=== PATIENT | male | born 1970 | race Caucasian/White ===

== ENCOUNTER 2020-10-02 12:52 | Emergency (ER) | payer MEDICARE, SELFPAY ==
[2020-10-02 13:05] VITALS: BP 130/86; PULSE 89; RESP 20; TEMP 36.3; O2SAT 98; BMI 34.1
--- NOTE | 2020-10-02 13:29 | HMH.EDUTC ---
[facility] [place] Disposition Clinical Impression: Exposure to COVID-19 virus Disposition: Home, Self-Care Condition on Discharge: Good Instructions: DI for COVID-19 (Suspected or Confirmed ), Coronavirus Disease 2019, COVID-19: Testing and Tracing, Preventing the Spread of Coronavirus Discharge Instructions Additional Instructions: *Monitor Temp, Over the counter Motrin or Tylenol as directed/as needed Tylenol every 4 hours and Motrin every 6 hours (as long as your family doctor has told you that you can take it) for fever or pain. and straight to ER if unable to lower temp less than 101.0 after medication given Follow up IMMEDIATELY for new or worsening symptoms or no Noticeable improvement over the next 48-72 hours. 911 for difficulty breathing or swallowing You were tested for today for COVID19 your test result should be back in the next 24-48 hours, you may call to the [facility] to see if your test results are back in the next 48 hours [phone] [facility] hours are 9am-9pm You was given a handout with instructions for Self Quarantine and Self isolation for while you wait on test results and what to do if they are positive If you are positive the Health Dept will be contacting you also Referrals: Delmer Wilson III, MD [Primary Care Provider] - As needed Forms: Work/School Release Time of Disposition: 13:34 Medical Decision Making - Ziggy Inquiry Pt receiving controlled substance: No Ziggy was queried for this patient: No Vital Signs: 10/02/20 13:05 Temperature 97.4 F L Temperature Source Oral Pulse Rate [Right Brachial] 89 Respiratory Rate 20 Blood Pressure [Right Arm] 130/86 Blood Pressure Mean [Right Arm] 100 Blood Pressure Source [Right Arm] Automatic Cuff Blood Pressure Position [Right Arm] Sitting 02 Sat by Pulse Oximetry 98 Oxygen Delivery Method Room Air - Lab Data Lab results reviewed: Yes: I reviewed the patient's lab results. Orders (Tests/Meds): ORDERS Category Date Time Status Covid-19 Nasal PCR ([facility]) Routine Lab 10/02/20 12:59 Ordered [facility] [place] HPI - General Stated complaint: covid exposure Time Seen by Provider: 10/02/20 13:29 Mode of Arrival: Ambulatory Source of Information: Patient Limitations: No Limitations Description of Symptoms (Recalled from Triage Doc. by RN): REQUESTING COVID TEST D/T EXPOSURE; C/O NAUSEA HEENT Symptoms (Recalled from RN notes): No Resp Symptoms (Recalled from RN notes): No Skin Symptoms (Recalled from RN notes): No MS Symptoms (Recalled from RN notes): No Functional Status (Recalled from RN notes): WNL - History of Present Illness Provider Complaint: Patient states that he was recently around someone that has tested positive for COVID States that he has not been having any symptoms States that he has had a little nausea but nothing else - Related Data Allergies Allergy/AdvReac Type Severity Reaction Status Date / Time No Known Allergies Allergy Verified 10/02/20 13:18 - Worker's Comp Is this a Worker's Comp case?: No [facility] History - Hepatitis A Screen Drug use history?: No High risk sexual behaviors?: No History of sexually transmitted infection?: No Currently employed?: No Childcare worker?: No Do you have indoor plumbing?: Yes Do you have electricity?: Yes Attestation statement:: This patient has been screened for Hepatitis A risk factors. I have reviewed the patient's past medical history: Yes Medical History: Reports:: Diabetes Mellitus Type 2 - Social History Alcohol Intake: never Occupational Status: other ROS Obtained: Yes All systems reviewed & no additional complaints, Yes Systems reviewed as appropriate & no additional complaints - Constitutional Constitutional: Reports system reviewed and no additional complaints, except as docu, Denies body ache, Denies chills, Denies fever(s), Denies headache(s) - ENT Ears, Nose, Mouth, and Throat: Reports system reviewed and no additional complaints, except as docu - Cardiovascular
[2020-10-02 13:41] VITALS: BP 130/86; PULSE 89; RESP 20; TEMP 36.3; O2SAT 98
== END 2020-10-02 13:42 | disposition home or self-care (01) ==
PROVIDERS: Emergency Provider Nurse Practitioner; PCP Family Medicine
DX: Z20.828 Contact with and (suspected) exposure to other viral communicable diseases (principal); R11.0 Nausea
CPT/HCPCS: 99202; G0463; U0003

== ENCOUNTER 2020-10-11 16:45 | Emergency (ER) | payer MEDICARE, SELFPAY ==
[2020-10-11 17:10] VITALS: BP 116/76; PULSE 89; RESP 18; TEMP 36.4; O2SAT 98; BMI 33.8
--- NOTE | 2020-10-11 17:31 | HMH.EDUTC ---
[facility] [place] Disposition Clinical Impression: Exposure to COVID-19 virus Disposition: Home, Self-Care Condition on Discharge: Good Instructions: DI for COVID-19 (Suspected or Confirmed ), Preventing the Spread of Coronavirus Discharge Instructions, Coronavirus Disease 2019 Additional Instructions: *Monitor Temp, Over the counter Motrin or Tylenol as directed/as needed Tylenol every 4 hours and Motrin every 6 hours (as long as your family doctor has told you that you can take it) for fever or pain. and straight to ER if unable to lower temp less than 101.0 after medication given *Warm salt water gargles may help to soothe the throat *Throat Lozenges *Warm fluids like tea with honey may help to soothe the throat *Sleep elevated *Humidifier/Vaporizer Follow up IMMEDIATELY for new or worsening symptoms or no Noticeable improvement over the next 48-72 hours. 911 for difficulty breathing or swallowing You were tested for today for COVID19 your test result should be back in the next 24-48 hours, you may call to the [facility] to see if your test results are back in the next 48 hours [phone] [facility] hours are 9am-9pm You was given a handout with instructions for Self Quarantine and Self isolation for while you wait on test results and what to do if they are positive If you are positive the Health Dept will be contacting you also * Referrals: Delmer Wilson III, MD [Primary Care Provider] - As needed Forms: Work/School Release Time of Disposition: 17:34 Medical Decision Making - Ziggy Inquiry Pt receiving controlled substance: No Ziggy was queried for this patient: No Vital Signs: 10/11/20 17:10 Temperature 97.6 F Temperature Source Oral Pulse Rate [Right Brachial] 89 Respiratory Rate 18 Blood Pressure [Right Arm] 116/76 Blood Pressure Mean [Right Arm] 89 Blood Pressure Source [Right Arm] Automatic Cuff Blood Pressure Position [Right Arm] Sitting 02 Sat by Pulse Oximetry 98 Orders (Tests/Meds): ORDERS Category Date Time Status Covid-19 Nasal PCR ([facility]) Routine Lab 10/11/20 16:51 Ordered [facility] [place] HPI - General Stated complaint: Covid-19 test has fever Time Seen by Provider: 10/11/20 17:32 Mode of Arrival: Ambulatory Source of Information: Patient Limitations: No Limitations Description of Symptoms (Recalled from Triage Doc. by RN): COVID TEST D/T EXPOSURE; C/O FEVER, MUSCLE ACHES AND HEADACHE HEENT Symptoms (Recalled from RN notes): Yes Resp Symptoms (Recalled from RN notes): No Skin Symptoms (Recalled from RN notes): No MS Symptoms (Recalled from RN notes): No Functional Status (Recalled from RN notes): WNL - History of Present Illness Provider Complaint: Patient states that he wants to get tested for COVID State that he was recently around someone that is positive States that he has been having headaches, cough and body aches - Related Data Allergies Allergy/AdvReac Type Severity Reaction Status Date / Time No Known Allergies Allergy Verified 10/02/20 13:18 - Worker's Comp Is this a Worker's Comp case?: No [facility] History - Hepatitis A Screen Drug use history?: No High risk sexual behaviors?: No History of sexually transmitted infection?: No Currently employed?: No Childcare worker?: No Do you have indoor plumbing?: Yes Do you have electricity?: Yes Attestation statement:: This patient has been screened for Hepatitis A risk factors. I have reviewed the patient's past medical history: Yes Medical History: Reports:: Diabetes Mellitus Type 2 - Social History Alcohol Intake: never Occupational Status: other ROS Obtained: Yes All systems reviewed & no additional complaints, Yes Systems reviewed as appropriate & no additional complaints - Constitutional Constitutional: Reports body ache, Reports chills, Reports fever(s), Reports headache(s) - ENT Ears, Nose, Mouth, and Throat: Reports system reviewed and no additional complaints, except as docu - Cardiovascular Cardiovascular: R
[2020-10-11 17:48] VITALS: BP 116/76; PULSE 89; RESP 18; TEMP 36.4; O2SAT 98
--- NOTE | 2020-10-12 21:11 | PC.NURSE ---
ATTEMPTED TO CALL PT ABOUT COVID RESULT, NO ANSWER
--- NOTE | 2020-10-13 10:58 | PC.NURSE ---
patient notified of positive covid results
== END 2020-10-11 17:49 | disposition home or self-care (01) ==
PROVIDERS: Emergency Provider Nurse Practitioner; PCP Family Medicine
DX: U07.1 COVID-19 (principal)
CPT/HCPCS: G0463; 99202; U0003

== ENCOUNTER → 2021-03-23 11:53 | Outpatient (CLI) | payer MEDICARE, SELFPAY ==
[2021-03-23 12:11] LABS: Basophils % 0.3 % (0.1-2.0); Eosinophils # 0.1 K/mm3 (0.0-0.4); Eosinophils % 1.5 % (0.1-12.0); Hematocrit 45.8 % (42.0-52.0); Hemoglobin 15.9 g/dL (14.1-18.0); Lymphocytes # 1.2 K/mm3 (0.7-4.5); Lymphocytes % 18.4 % (10-50); Mean Corpuscular HGB Conc 34.7 g/dL (31.8-35.4); Mean Corpuscular Hemoglobin 31.8 pg (27.0-31.2); Mean Corpuscular Volume 91.7 fl (80-94); Mean Platelet Volume 7.4 fl (7.4-10.4); Monocytes # 0.4 K/mm3 (0.1-1.0); Monocytes % 5.4 % (1.7-9.3); Neutrophils # 4.9 K/mm3 (1.8-7.8); Neutrophils % 74.4 % (37.0-80.0); Platelet Count 169 K/mm3 (142-424); Red Blood Count 4.99 M/mm3 (4.60-6.20); Red Cell Distribution Width 13.2 % (11.5-17.5); White Blood Count 6.5 K/mm3 (4.8-10.8)
[2021-03-23 12:31] LABS: Hemoglobin A1C 6.1 % (4.0-6.0)
[2021-03-23 12:51] LABS: Chloride 100 mmol/L (98-107); Potassium 4.3 mmoL/L (3.5-5.1); Sodium 139 mmol/L (136-145)
[2021-03-23 12:53] LABS: Blood Urea Nitrogen 18 mg/dl (9-20); Estimated Glomerular Filt Rate 102 ml/min (>60); GFR (African American) 124 ML/MIN (>60)
[2021-03-23 12:54] LABS: Alanine Aminotransferase 29 U/L (12-78); Albumin Level 4.9 g/dl (3.5-5.0); Albumin/Globulin Ratio 1.6 (1.1-1.8); Alkaline Phosphatase 49 U/L (38-126); Anion Gap 14.3 mEq/L (5-15); Aspartate Amino Transferase 35 U/L (17-59); Bilirubin,Total 1.1 mg/dl (0.2-1.3); Calcium 9.2 mg/dl (8.4-10.2); Carbon Dioxide 29 mmol/L (22.0-30.0); Chol/HDL Ratio 2.5 (1-3.5); Cholesterol 169 mg/dl (140-200); Glucose 116 mg/dl (74-100); HDL Cholesterol 68 mg/dl (40-60); Total Protein,Serum 7.9 g/dl (6.3-8.2); Triglycerides 120 mg/dl (30-150); VLDL Cholesterol 24 mg/dL (0-40)
[2021-03-23 13:29] LABS: Direct LDL Cholesterol 81.27 mg/dL (100-129)
[2021-03-23 13:49] LABS: Prostate Specific Ag Screen 0.9 ng/ml (0.0-4.0)
== END ==
PROVIDERS: Visit Provider Internal Medicine Adolescent Medicine
DX: E11.9 Type 2 diabetes mellitus without complications (principal); E78.5 Hyperlipidemia, unspecified; Z12.5 Encounter for screening for malignant neoplasm of prostate
CPT/HCPCS: 36415; 80053; 80061; 83036; 85025; G0103

== ENCOUNTER → 2021-05-30 09:18 | Outpatient (CLI) | payer MEDICARE, SELFPAY | PROVIDERS: Visit Provider Internal Medicine Gastroenterology | DX: Z01.812 Encounter for preprocedural laboratory examination (principal); Z20.822 Contact with and (suspected) exposure to COVID-19; Z12.11 Encounter for screening for malignant neoplasm of colon | CPT/HCPCS: U0003 ==

== ENCOUNTER 2021-06-01 10:55 | Day surgery (SDC) | payer MEDICARE, SELFPAY ==
[2021-05-26 13:58] VITALS: BMI 32.1
[2021-06-01] VITALS (7 sets, daily range): BP systolic 101–115; BP diastolic 61–78; PULSE 57–65; RESP 12–18; TEMP 36.2–36.4; O2SAT 94–100
[2021-06-01 11:23] LABS: POC Glucose,Bedside 120 (70-110)
--- NOTE | 2021-06-01 11:24 | P.PN_ITS ---
[facility] Anesthesia Checklist - Patient Identification Patient Identification: Arm Band - Structural Data Admitted From: Home Planned Operative Procedure/s: colonoscopy Consent for Planned Operative Procedure(s) Verified: Yes Verified Documents: Surgical Consent, History and Physical - NPO Status Verified Time NPO: 00:00 - Additional verifications Anesthesia Reactions: No - Airway Assessment C-Spine Mobility Assessed: Yes (mp2) TMJ Mobility Assessed: Yes Dentition: Good Dentition - Neurological Assessment Level of Consciousness: Awake, Alert - Anesthesia Plan Anesthesia Risk discussed: Yes Anesthesia Plan: Verified ASA Class: III Anesthesia Type: MAC [facility] History I have reviewed the patient's past medical history: Yes Medical History: Reports:: Diabetes Mellitus Type 2, Hyperlipidemia, Hypertension Denies:: Cancer, Diabetes Mellitus Type 1, Internal Pacemaker, MRSA, Seizures *Have you ever received a pneumonia vaccine?: No *Have you received a flu vaccine this season?: Yes (2019) Anesthesia experience/problems:: nac Other Surgeries: Yes: Other. No: Pacemaker Amputation: No Fractures: Yes (L arm ORIF) - *Social History Last grade of school completed: High school graduate Smoking Status: Never smoker Alcohol Intake: current Alcohol Intake Frequency:: a few times a month Substance Use Type: denies use *Occupational Status:: unemployed, disabled Housing: house *Travel in the last 8 weeks: None Family Hx:: No significant family history
--- NOTE | 2021-06-01 12:03 | HMH.PROC ---
[facility] Procedure Note Procedure Note:: Colonoscopy Procedure Report: Colonoscopy with cold snare polypectomy, snare cautery and Endo Clip placement Endoscopist: Waylon Brantley II, MD Referring physician: Finn Ford M.D. Date of Procedure: June 01, 2021 Equipment: Olympus 190 variable stiffness pediatric colonoscope Sedation: MAC sedation Indication: Mr. Mckeon is a 50-year-old gentleman who is here for initial screening colonoscopy. He reports no rectal bleeding, change in his bowel habits, weight loss or family history of colon cancer. He does state that his father had colonic polyps. He does get some chronic intermittent lower abdominal crampy discomfort. This has been going on for the last couple of years. He reports no gassiness or bloating. Procedure: Prior to the procedure, a history and physical exam was performed, and patient's medications and allergies were reviewed. The risks, benefits and alternatives of the sedation and procedure were discussed with the patient. All questions were answered and informed consent was obtained. The patient was brought to the procedure room. Patient identification and proposed procedure were verified by the physician and the nurse. The patient was placed in a left lateral decubitus position and the scope was passed under direct vision. Throughout the procedure, the patient's blood pressure, pulse, and oxygen saturations were monitored continuously. The colonoscopy was accomplished without difficulty. The patient tolerated the procedure well. Findings: On digital rectal examination there was normal rectal tone. There were no external hemorrhoids. The prostate was 2+, soft, minimally increased firmness right lower margin but no nodules. The colonoscope was introduced through the anal canal to the rectum and advanced to the cecum. The ileocecal valve and appendiceal orifice were identified. The scope was advanced a short distance into the ileum which appeared grossly normal. The scope was then withdrawn into the colon. There were 5 colon polyps (cecum x2 (3 and 6 mm), transverse x2 (4 and 5 mm) and sigmoid x1 (14 mm)). These were all removed via snare polypectomy. The smaller polyps were removed via cold snare polypectomy. The largest sigmoid polyp was removed via snare cautery. An Endo Clip was placed on the polypectomy base. The remaining cecum, ascending and transverse colon and mucosa were grossly normal. There were mildly scattered diverticuli throughout the descending and sigmoid colon (LEFT colon). The rectum itself was normal. Upon retroflexion within the rectum there were grade 1-2 internal hemorrhoids. The preparation was excellent throughout with Battiest Preparation Score of 9. The cecal time was 12 minutes. Impression: 1. Sigmoid colon polyp (14 mm) 2. Diminutive additional colonic polyps x4 3. Mild left-sided diverticulosis 4. Grade 1-2 internal hemorrhoids Plan: I will follow up the polyp histology and recommend repeat screening/surveillance colonoscopy again in 3 years based upon the size and adenomatous polyp pathology. I would encourage dietary measures and bulk fiber supplementation. I do feel that the patient does get some intermittent spastic diverticular disease.
== END 2021-06-01 12:55 | disposition home or self-care (01) ==
LOC: OUTP 10:57
PROVIDERS: PCP Internal Medicine Adolescent Medicine; Visit Provider Internal Medicine Gastroenterology
PROC: 0DJD8ZZ Inspection of Lower Intestinal Tract, Via Natural or Artificial Opening Endoscopic (ICD-10-PCS; CPT 45378; principal; 2021-06-01 14:00)
DX: Z12.11 Encounter for screening for malignant neoplasm of colon (principal); K63.5 Polyp of colon; K57.32 Diverticulitis of large intestine without perforation or abscess without bleeding; K64.0 First degree hemorrhoids; Z83.71 Family history of colonic polyps; E11.9 Type 2 diabetes mellitus without complications; E78.5 Hyperlipidemia, unspecified; I10 Essential (primary) hypertension
CPT/HCPCS: 45385; 82962; 88305

== ENCOUNTER → 2021-07-17 07:17 | Outpatient (CLI) | payer MEDICARE, SELFPAY ==
[2021-07-17 07:53] LABS: Basophils # 0.1 K/mm3 (0-0.2); Eosinophils # 0.4 K/mm3 (0.0-0.4); Eosinophils % 8.6 % (0.1-12.0); Hematocrit 45.4 % (42.0-52.0); Hemoglobin 15.2 g/dL (14.1-18.0); Lymphocytes # 1.5 K/mm3 (0.7-4.5); Mean Corpuscular HGB Conc 33.5 g/dL (31.8-35.4); Mean Corpuscular Hemoglobin 32.4 pg (27.0-31.2); Mean Corpuscular Volume 96.7 fl (80-94); Mean Platelet Volume 8.1 fl (7.4-10.4); Monocytes # 0.3 K/mm3 (0.1-1.0); Neutrophils # 2.8 K/mm3 (1.8-7.8); Neutrophils % 54.5 % (37.0-80.0); Platelet Count 162 K/mm3 (142-424); Red Cell Distribution Width 13.4 % (11.5-17.5); White Blood Count 5.1 K/mm3 (4.8-10.8)
[2021-07-17 08:04] LABS: Chloride 101 mmol/L (98-107)
[2021-07-17 08:05] LABS: Potassium 4.1 mmoL/L (3.5-5.1); Sodium 139 mmol/L (136-145)
[2021-07-17 08:07] LABS: Alanine Aminotransferase 27 U/L (12-78); Alkaline Phosphatase 51 U/L (38-126); Aspartate Amino Transferase 31 U/L (17-59); Bilirubin,Total 0.9 mg/dl (0.2-1.3); Blood Urea Nitrogen 11 mg/dl (9-20); Estimated Glomerular Filt Rate 119 ml/min (>60); GFR (African American) 144 ML/MIN (>60)
[2021-07-17 08:08] LABS: Albumin Level 4.1 g/dl (3.5-5.0); Albumin/Globulin Ratio 1.6 (1.1-1.8); Anion Gap 12.1 mEq/L (5-15); Carbon Dioxide 30 mmol/L (22.0-30.0); Chol/HDL Ratio 2.2 (1-3.5); Cholesterol 119 mg/dl (140-200); Globulin 2.6 g/dL (1.3-3.2); Glucose 105 mg/dl (74-100); HDL Cholesterol 53 mg/dl (40-60); Total Protein,Serum 6.7 g/dl (6.3-8.2); Triglycerides 106 mg/dl (30-150); VLDL Cholesterol 21 mg/dL (0-40)
[2021-07-17 08:19] LABS: Direct LDL Cholesterol 49.49 mg/dL (100-129)
== END ==
PROVIDERS: Visit Provider Internal Medicine Adolescent Medicine
DX: E78.5 Hyperlipidemia, unspecified (principal); E11.9 Type 2 diabetes mellitus without complications; Z79.84 Long term (current) use of oral hypoglycemic drugs
CPT/HCPCS: 36415; 80053; 80061; 83036; 85025

== ENCOUNTER → 2021-10-26 12:03 | Outpatient (CLI) | payer MEDICARE, SELFPAY | PROVIDERS: Visit Provider Nurse Practitioner | DX: U07.1 COVID-19 (principal) | CPT/HCPCS: C9803; U0003; U0005 ==

== ENCOUNTER → 2022-08-19 07:05 | Outpatient (CLI) | payer OTHER, SELFPAY ==
--- NOTE | 2022-08-19 07:12 | CT_ITS ---
FINAL REPORT TECHNIQUE: Axial images were performed through the lumbar spine by computed tomography. Sagittal reconstruction images were also performed. This study was performed with techniques to keep radiation doses as low as reasonably achievable, (ALARA). Individualized dose reduction techniques using automated exposure control or adjustment of mA and/or kV according to the patient's size were employed. CLINICAL HISTORY: POST LAMINECTOMY SYNDROME, BACK PAIN FINDINGS: Sagittal reconstruction images demonstrate minimal spondylolisthesis of L4 on L5. The vertebrae are normal height. L1-L2: No significant disc bulge or protrusion. L2-L3: No significant disc bulge or protrusion. L3-L4: There is a mild diffuse disc bulge with endplate hypertrophy. There is mild bilateral neural foraminal narrowing. L4-L5: There is a mild diffuse disc bulge with mild bilateral neural foraminal narrowing. L5-S1: There is a [id number] diffuse disc bulge. There is moderate right and mild left neural foraminal narrowing. Note is made of a 3 mm nonobstructing left renal stone. IMPRESSION: Moderate hypertrophic changes of the lower lumbar facets with areas of neural foraminal narrowing greatest on the right at L5-S1. Reviewed, Interpreted and Dictated by James Crowley MD Transcribed by Errol Erickson Authenticated and [facility]
== END ==
PROVIDERS: PCP Internal Medicine Adolescent Medicine; Visit Provider Anesthesiology Pain Medicine
DX: M96.1 Postlaminectomy syndrome, not elsewhere classified (principal)
CPT/HCPCS: 72131

== ENCOUNTER → 2023-03-28 12:18 | Outpatient (CLI) | payer OTHER, SELFPAY ==
[2023-04-21 00:07] LABS: MRSA DNA PCR Negative
== END ==
PROVIDERS: PCP Internal Medicine Adolescent Medicine; Visit Provider Nurse Practitioner Family
DX: M96.1 Postlaminectomy syndrome, not elsewhere classified (principal)
CPT/HCPCS: 36415; 87641

== ENCOUNTER → 2023-04-29 10:35 | Outpatient (CLI) | payer MEDICARE, SELFPAY ==
[2023-04-29 12:39] LABS: Anion Gap 11.2 mEq/L (5-15); Blood Urea Nitrogen 18 mg/dl (9-20); Calcium 8.9 mg/dl (8.4-10.2); Carbon Dioxide 28 mmol/L (22.0-30.0); Chloride 104 mmol/L (98-107); Estimated Glomerular Filt Rate 102 ml/min (>60); GFR (African American) 123 ML/MIN (>60); Glucose 94 mg/dl (74-100); Potassium 4.2 mmoL/L (3.5-5.1); Sodium 139 mmol/L (136-145)
== END ==
PROVIDERS: PCP Internal Medicine Adolescent Medicine; Visit Provider Anesthesiology
DX: M96.1 Postlaminectomy syndrome, not elsewhere classified (principal)
CPT/HCPCS: 36415; 80048

== ENCOUNTER → 2023-07-28 13:48 | Outpatient (CLI) | payer MEDICARE, SELFPAY ==
--- NOTE | 2023-07-28 13:57 | US_ITS ---
FINAL REPORT CLINICAL HISTORY: CERVICAL LYMPHADENOPATHY FINDINGS: Limited sonographic images of the neck soft tissue were obtained. The parotid and submandibular glands are normal. There are several small nodes in the bilateral neck. The appearance is consistent with reactive nodes. No dominant mass or nodule is identified. IMPRESSION: Several small bilateral neck nodes consistent with reactive nodes. Reviewed, Interpreted and Dictated by Josesito Merino III, MD Transcribed by Yuliana Pandya Authenticated and [facility]
== END ==
LOC: RAD 13:49
PROVIDERS: PCP Internal Medicine Adolescent Medicine; Visit Provider Internal Medicine Adolescent Medicine
DX: R59.0 Localized enlarged lymph nodes (principal)
CPT/HCPCS: 76536

== ENCOUNTER 2023-09-18 18:40 | Emergency (ER) | payer MEDICARE, SELFPAY ==
[2023-09-18 18:40] VITALS: BP 141/88; PULSE 87; RESP 16; TEMP 36.7; O2SAT 98; BMI 31.3
--- NOTE | 2023-09-18 18:44 | ECG_ITS ---
APPROVED REPORT Exam: Resting ECG HR:92 bpm ECG Measurements Heart Rate 92 AXES AL 139 P 74 QRSd 78 QRS -75 QT 346 T 57 QTc 396 Conclusion SINUS RHYTHM INDETERMINATE AXIS PATTERN CONSISTENT WITH PULMONARY DISEASE ABNORMAL ECG UNCONFIRMED REPORT Electronically signed by : Finn Ford MD 09/19/2023 14:45:42
--- NOTE | 2023-09-18 19:07 | XR_ITS ---
PROCEDURE INFORMATION: Exam: XR Chest Exam date and time: 09/18/2023 7:10 PM Age: 52 years old Clinical indication: Sternal or substernal pain; Patient HX: Headache and chest pain. TECHNIQUE: Imaging protocol: Radiologic exam of the chest. Views: 1 view. COMPARISON: No relevant prior studies available. FINDINGS: Lungs: Unremarkable. No consolidation. Pleural spaces: Unremarkable. No pleural effusion. No pneumothorax. Heart/Mediastinum: Unremarkable. No cardiomegaly. Bones/joints: Thoracic spinal device. IMPRESSION: No acute findings.
--- NOTE | 2023-09-18 19:09 | HMH.EDCP ---
Discharge Plan Disposition Patient Disposition: Home, Self-Care Chief Complaint: Chest Pain Prescriptions Prescriptions: No Action cyclobenzaprine 10 MG tablet 10 mg PO HS metoprolol succinate 50 MG tablet 50 mg PO DAILY gabapentin 400 MG capsule 800 mg PO TID hydrocodone-acetaminophen 1 EACH tablet 1 each PO NEEDED PRN (Reason: pain) metformin 1,000 MG tablet 1,000 mg PO BID lisinopril-hydrochlorothiazide 1 EACH tablet 1 each PO DAILY rosuvastatin 10 MG tablet 10 mg PO DAILY Referrals Follow up/Referrals: Finn Ford MD [Primary Care Provider] - See instructions Activity Restrictions/Add. Instructions Additional Instructions/Restrictions: Call your family doctor to establish care for this visit to the emergency department and schedule follow-up within 48 hours to ensure improvement. If you have any worsening of your condition or any other concerning signs or symptoms, return to the emergency department or your primary care doctor for further evaluation. Clinical Impressions Clinical Impression: Syncope Qualifiers: Syncope type: unspecified Qualified Code(s): R55 - Syncope and collapse Headache Qualifiers: Headache type: unspecified Headache chronicity pattern: acute headache Intractability: not intractable Qualified Code(s): R51.9 - Headache, unspecified Discharge ED Provider: Erik Rowland [facility] General Chief Complaint: Chest Pain Stated Complaint: Chest Pressure, Headache, Nausea Time Seen by Provider: 09/18/23 18:42 Mode of Arrival: EMS Source of Information: Patient Limitations: No Limitations Description of Symptoms (Recalled from ER Triage Doc. by RN): Patient reports he has had off and on substernal chest pain for the past 2 days. States that today he began to get dizzy, nausea, and a headache. History of Present Illness HPI narrative: 52 history of hypertension and diabetes presenting with chest pain and headache. These been going on for about 2 days. Patient states that he started having severe chest pain that radiates to his left shoulder blade and headache, then remembers waking up on the floor. Son at bedside to corroborate this history. Patient still having shortness of breath and chest pain, no neurologic deficits. He is photophobic. Related Data Home Medications Medication Instructions Recorded Confirmed cyclobenzaprine 10 mg tablet 10 mg PO HS Pain 05/26/21 05/26/21 gabapentin 400 mg capsule 800 mg PO TID Pain 05/26/21 05/26/21 hydrocodone 10 mg-acetaminophen 1 each PO NEEDED PRN pain 05/26/21 05/26/21 325 mg tablet lisinopril 10 1 each PO DAILY High blood pressure 05/26/21 05/26/21 mg-hydrochlorothiazide 12.5 mg tablet metformin 1,000 mg tablet 1,000 mg PO BID Diabetes 05/26/21 05/26/21 metoprolol succinate 50 mg 50 mg PO DAILY High blood pressure 05/26/21 05/26/21 tablet,extended release 24 hr rosuvastatin 10 mg tablet 10 mg PO DAILY Cholesterol 05/26/21 05/26/21 Allergies Allergy/AdvReac Type Severity Reaction Status Date / Time No Known Allergies Allergy Verified 05/26/21 13:55 [facility] Disclaimer: The information contained in this section may have been updated after the patient was seen, as this information can be updated by other users. Social History Smoking Status: Never smoker alcohol intake: current substance use type: denies use current occupational status: unemployed and disabled Travel in the last 8 weeks: None housing: house current occupational exposures/hazards: No caffeine: Yes ROS Obtained: Yes All systems reviewed & no additional complaints except as documented Physical Exam General General appearance: alert and anxious Eye Eye exam: Present PERRL and EOMI Neck Neck exam: Present trachea midline Chest Chest inspection: Present normal inspection and symmetric chest wall rise Respiratory Respiratory exam: Present normal lung sounds bilaterally; Absent respi
--- NOTE | 2023-09-18 19:12 | CT_ITS ---
PROCEDURE INFORMATION: Exam: CT Head Without Contrast Exam date and time: 09/18/2023 7:34 PM Age: 52 years old Clinical indication: Stroke-like symptoms; Headache and syncope/collapse; Additional info: Syncope, worst headache of life TECHNIQUE: Imaging protocol: Computed tomography of the head without contrast. Radiation optimization: All CT scans at this facility use at least one of these dose optimization techniques: automated exposure control; mA and/or kV adjustment per patient size (includes targeted exams where dose is matched to clinical indication); or iterative reconstruction. Other technique: STROKE PROTOCOL was implemented. REPORTING DATA: Count of CT and Cardiac NM exams in prior 12 months: This patient has received 0 known CTs and 0 known cardiac nuclear medicine studies in the 12 months prior to the current study. COMPARISON: US SOFT TISSUE HEAD AND NECK 28/07/2023 14:07 FINDINGS: Brain: Normal. No hemorrhage. Unremarkable white matter. No mass effect. Cerebral ventricles: No ventriculomegaly. Paranasal sinuses: Visualized sinuses are unremarkable. No fluid levels. Mastoid air cells: Visualized mastoid air cells are well aerated. Bones/joints: Unremarkable. No acute fracture. Soft tissues: Unremarkable. IMPRESSION: No acute intracranial findings. If there is high clinical concern for acute infarction, consider MRI for further evaluation. ASSESSMENT: ASPECTS score ([place] Stroke Program Early CT Score) is 10.
--- NOTE | 2023-09-18 19:12 | CT_ITS ---
PROCEDURE INFORMATION: Exam: CTA Head With Contrast, Arteriography Exam date and time: 09/18/2023 7:39 PM Age: 52 years old Clinical indication: Stroke-like symptoms; Syncope/collapse; Additional info: Cp to back and syncope TECHNIQUE: Imaging protocol: Computed tomographic angiography of the head with contrast. Exam focused on the arteries. 3D rendering (Not supervised by radiologist): MIP and/or 3D reconstructed images were created by the technologist. Radiation optimization: All CT scans at this facility use at least one of these dose optimization techniques: automated exposure control; mA and/or kV adjustment per patient size (includes targeted exams where dose is matched to clinical indication); or iterative reconstruction. Contrast material: ISOVUE; Contrast volume: 75 ml; Contrast route: INTRAVENOUS (IV); REPORTING DATA: Count of CT and Cardiac NM exams in prior 12 months: This patient has received 0 known CTs and 0 known cardiac nuclear medicine studies in the 12 months prior to the current study. COMPARISON: CT HEAD/BRAIN WO CON 09/18/2023 7:34 PM FINDINGS: ANTERIOR CIRCULATION: Right internal carotid artery: Intracranial segment is patent with no significant stenosis. No aneurysm. Right middle cerebral artery: No occlusion or significant stenosis. No aneurysm. Right anterior cerebral artery: No occlusion or significant stenosis. No aneurysm. Left internal carotid artery: Intracranial segment is patent with no significant stenosis. No aneurysm. Left middle cerebral artery: No occlusion or significant stenosis. No aneurysm. Left anterior cerebral artery: No occlusion or significant stenosis. No aneurysm. POSTERIOR CIRCULATION: Right vertebral artery: No occlusion or significant stenosis. No aneurysm. Left vertebral artery: No occlusion or significant stenosis. No aneurysm. Basilar artery: No occlusion or significant stenosis. No aneurysm. Right posterior cerebral artery: No occlusion or significant stenosis. No aneurysm. Left posterior cerebral artery: No occlusion or significant stenosis. No aneurysm. Brain: No definite mass, mass effect, or midline shift. Cerebral ventricles: No ventriculomegaly. Bones/joints: Unremarkable. No acute fracture. Soft tissues: Unremarkable. IMPRESSION: No large vessel stenosis or occlusion.
--- NOTE | 2023-09-18 19:12 | CT_ITS ---
PROCEDURE INFORMATION: Exam: CTA Chest With Contrast Exam date and time: 09/18/2023 7:43 PM Age: 52 years old Clinical indication: Pain; Chest pressure; Additional info: Cp to back and syncope TECHNIQUE: Imaging protocol: Computed tomographic angiography of the chest with contrast. Exam focused on the arteries. 3D rendering (Not supervised by radiologist): MIP and/or 3D reconstructed images were created by the technologist. Radiation optimization: All CT scans at this facility use at least one of these dose optimization techniques: automated exposure control; mA and/or kV adjustment per patient size (includes targeted exams where dose is matched to clinical indication); or iterative reconstruction. Contrast material: ISOVUE; Contrast volume: 75 ml; Contrast route: INTRAVENOUS (IV); REPORTING DATA: Count of CT and Cardiac NM exams in prior 12 months: This patient has received 0 known CTs and 0 known cardiac nuclear medicine studies in the 12 months prior to the current study. COMPARISON: CR XR CHEST PORTABLE 18/09/2023 19:10 FINDINGS: Pulmonary arteries: No pulmonary emboli. Aorta: Unremarkable. No aortic aneurysm. No aortic dissection. Renal arteries: Accessory bilateral renal arteries. Lungs: Unremarkable. No consolidation. No masses. Pleural spaces: Unremarkable. No pneumothorax. No pleural effusion. Heart: Unremarkable. No cardiomegaly. No pericardial effusion. Coronary arteries: Mild coronary arterial calcification, indicating the presence of coronary artery disease. Lymph nodes: Unremarkable. No enlarged lymph nodes. Liver: Hepatic cirrhosis. Gallbladder and bile ducts: Contracted gallbladder. Bones/joints: Thoracic spinal device. Soft tissues: Unremarkable. Other findings: Stigmata of old granulomatous disease. IMPRESSION: 1. No pulmonary emboli. 2. Hepatic cirrhosis. 3. Mild coronary arterial calcification, indicating the presence of coronary artery disease. If the patient has associated symptoms, recommend management as per chest pain guidelines. If the patient is asymptomatic, consider reviewing modifiable cardiovascular risk factors and managing as per guidelines for primary prevention.
--- NOTE | 2023-09-18 19:12 | CT_ITS ---
PROCEDURE INFORMATION: Exam: CTA Neck With Contrast Exam date and time: 09/18/2023 7:39 PM Age: 52 years old Clinical indication: Stroke-like symptoms; Syncope/collapse; Additional info: Cp to back and syncope TECHNIQUE: Imaging protocol: Computed tomographic angiography of the neck with contrast. Exam focused on the cervical segments of the vasculature. 3D rendering (Not supervised by radiologist): MIP and/or 3D reconstructed images were created by the technologist. Radiation optimization: All CT scans at this facility use at least one of these dose optimization techniques: automated exposure control; mA and/or kV adjustment per patient size (includes targeted exams where dose is matched to clinical indication); or iterative reconstruction. Contrast material: ISOVUE; Contrast volume: 75 ml; Contrast route: INTRAVENOUS (IV); REPORTING DATA: Count of CT and Cardiac NM exams in prior 12 months: This patient has received 0 known CTs and 0 known cardiac nuclear medicine studies in the 12 months prior to the current study. COMPARISON: CT ANGIO HEAD 09/18/2023 7:39 PM FINDINGS: Right common carotid artery: No stenosis. No dissection or occlusion. Right internal carotid artery: No stenosis of the extracranial segment. No dissection or occlusion. Right external carotid artery: No occlusion or stenosis of the origin. Left common carotid artery: No stenosis. No dissection or occlusion. Left internal carotid artery: No stenosis of the extracranial segment. No dissection or occlusion. Left external carotid artery: No occlusion or stenosis of the origin. Right vertebral artery: No stenosis. No dissection or occlusion. Left vertebral artery: No stenosis. No dissection or occlusion. Soft tissues: Normal. No significant soft tissue swelling. Bones/joints: No acute fracture. IMPRESSION: No stenosis or occlusion. REFERENCES: NASCET CRITERIA. The degree of stenosis in the cervical segment of the internal carotid artery is based on NASCET criteria. Normal is no stenosis. Mild is less than 50% stenosis. Moderate is 50-69% stenosis. Severe is 70% to 99% stenosis. Total occlusion is no detectable patent lumen.
--- NOTE | 2023-09-18 19:14 | PC.NURSE ---
RAD at for CXR
[2023-09-18 19:17] LABS: Chloride 103 mmol/L (98-107); Potassium 3.7 mmoL/L (3.5-5.1); Sodium 139 mmol/L (136-145)
[2023-09-18 19:19] LABS: Alanine Aminotransferase 41 U/L (12-78); Alkaline Phosphatase 43 U/L (38-126); Aspartate Amino Transferase 46 U/L (17-59); Bilirubin,Total 0.8 mg/dl (0.2-1.3); Blood Urea Nitrogen 16 mg/dl (9-20); Creatinine Clearance Estimated 139 mL/min (50-200); Estimated Glomerular Filt Rate 102 ml/min (>60); GFR (African American) 123 ML/MIN (>60)
[2023-09-18 19:20] LABS: Albumin Level 4.5 g/dl (3.5-5.0); Albumin/Globulin Ratio 1.4 (1.1-1.8); Anion Gap 14.7 mEq/L (5-15); Calcium 9.2 mg/dl (8.4-10.2); Carbon Dioxide 25 mmol/L (22.0-30.0); Globulin 3.2 g/dL (1.3-3.2); Glucose 131 mg/dl (74-100); Total Protein,Serum 7.7 g/dl (6.3-8.2)
[2023-09-18 19:22] LABS: Basophils % 0.5 % (0.1-2.0); Eosinophils % 0.5 % (0.1-12.0); Hematocrit 50.9 % (42.0-52.0); Hemoglobin 16.9 g/dL (14.1-18.0); Lymphocytes # 1.8 K/mm3 (0.7-4.5); Lymphocytes % 27.4 % (10-50); Mean Corpuscular HGB Conc 33.1 g/dL (31.8-35.4); Mean Corpuscular Hemoglobin 33.3 pg (27.0-31.2); Mean Corpuscular Volume 100.6 fl (80-94); Mean Platelet Volume 8.5 fl (7.4-10.4); Monocytes # 0.3 K/mm3 (0.1-1.0); Monocytes % 4.8 % (1.7-9.3); Neutrophils # 4.4 K/mm3 (1.8-7.8); Neutrophils % 66.9 % (37.0-80.0); Platelet Count 186 K/mm3 (142-424); Red Blood Count 5.07 M/mm3 (4.60-6.20); Red Cell Distribution Width 13.3 % (11.5-17.5); White Blood Count 6.6 K/mm3 (4.8-10.8)
[2023-09-18 19:31] LABS: Lipase 49 U/L (23-300)
[2023-09-18 19:33] LABS: Troponin I < 0.01 ng/ml (0.00-0.034)
[2023-09-18 21:11] VITALS: BP 127/64; PULSE 82; RESP 18; TEMP 36.5; O2SAT 97
[2023-09-18 21:26] LABS: Barbiturates Screen,Urine Negative ng/ml (<200)
[2023-09-18 21:27] LABS: Amphetamine/Metha Screen,Urine Negative ng/ml (<1000)
[2023-09-18 21:29] LABS: Cannabinoid Screen,Urine Negative ng/ml (<50); Cocaine Screen,Urine Negative ng/ml (<300)
[2023-09-18 21:30] LABS: Opiate Screen,Urine Negative ng/ml (<300); Phencyclidine Screen,Urine Negative ng/ml (<25)
[2023-09-18 21:36] LABS: Methadone Screen,Urine Negative ng/ml (<300)
[2023-09-18 22:24] LABS: Benzodiazepines Screen,Urine Negative ng/ml (<200)
== END 2023-09-18 21:18 | disposition home or self-care (01) ==
PROVIDERS: Emergency Provider Emergency Medicine; PCP Internal Medicine Adolescent Medicine
DX: R07.9 Chest pain, unspecified (principal); R55 Syncope and collapse; R51.9 Headache, unspecified
CPT/HCPCS: 70450; 70496; 70498; 71045; 71275; 80053; 80305; 83690; 84484; 85025; 93005; 96361; 96374; 96375; 99285; Q9967

== ENCOUNTER 2023-09-25 09:18 | Emergency (ER) | payer MEDICARE, SELFPAY ==
[2023-09-25 09:19] VITALS: BP 137/94; PULSE 62; RESP 18; TEMP 36.7; O2SAT 96; BMI 31.3
[2023-09-25 09:35] VITALS: BP 137/94; PULSE 58; O2SAT 97
--- NOTE | 2023-09-25 09:36 | PC.NURSE ---
Dr. Spencer at [facility] for pt eval
--- NOTE | 2023-09-25 09:40 | HMH.EDGENADL ---
Discharge Plan Disposition Patient Disposition: Home, Self-Care Prescriptions Prescriptions: No Action cyclobenzaprine 10 MG tablet 10 mg PO HS metoprolol succinate 50 MG tablet 50 mg PO DAILY gabapentin 400 MG capsule 800 mg PO TID hydrocodone-acetaminophen 1 EACH tablet 1 each PO NEEDED PRN (Reason: pain) metformin 1,000 MG tablet 1,000 mg PO BID lisinopril-hydrochlorothiazide 1 EACH tablet 1 each PO DAILY rosuvastatin 10 MG tablet 10 mg PO DAILY Referrals Follow up/Referrals: Finn Ford MD [Primary Care Provider] - See instructions Activity Restrictions/Add. Instructions Additional Instructions/Restrictions: Follow-up with primary care doctor as instructed return to the emergency department any high fevers or other concerns or any other neurologic complaints. Clinical Impressions Clinical Impression: Headache Discharge ED Provider: Abraham Spencer General Adult HPI General Chief complaint: Headache Stated complaint: h/a Time Seen by Provider: 09/25/23 09:36 History of Present Illness HPI narrative: Patient is a 52-year-old male present today with headache. States he has a history of headaches has had to come to the emergency department several times in the past for headaches was actually here about a week ago at which point he had a CT of his head and CT angio head and neck which were unremarkable and was treated for headache at that time now he is back with recurrence. States that he was trying to avoid coming to the emergency department today because it is [place] but that his headache just would not go away. Denies any other abnormalities including neurologic symptoms fevers neck stiffness etc. Denies any chest pain or shortness of breath or any other associated symptoms. Related Data Home Medications Medication Instructions Recorded Confirmed cyclobenzaprine 10 mg tablet 10 mg PO HS Pain 05/26/21 05/26/21 gabapentin 400 mg capsule 800 mg PO TID Pain 05/26/21 05/26/21 hydrocodone 10 mg-acetaminophen 1 each PO NEEDED PRN pain 05/26/21 05/26/21 325 mg tablet lisinopril 10 1 each PO DAILY High blood pressure 05/26/21 05/26/21 mg-hydrochlorothiazide 12.5 mg tablet metformin 1,000 mg tablet 1,000 mg PO BID Diabetes 05/26/21 05/26/21 metoprolol succinate 50 mg 50 mg PO DAILY High blood pressure 05/26/21 05/26/21 tablet,extended release 24 hr rosuvastatin 10 mg tablet 10 mg PO DAILY Cholesterol 05/26/21 05/26/21 Allergies Allergy/AdvReac Type Severity Reaction Status Date / Time No Known Allergies Allergy Verified 05/26/21 13:55 [facility] Disclaimer: The information contained in this section may have been updated after the patient was seen, as this information can be updated by other users. Social History Smoking Status: Never smoker alcohol intake: current substance use type: denies use current occupational status: unemployed and disabled Travel in the last 8 weeks: None housing: house current occupational exposures/hazards: No caffeine: Yes ROS Obtained: Yes All systems reviewed & no additional complaints except as documented Physical Exam General General appearance: alert and in no apparent distress Respiratory Respiratory exam: Present normal lung sounds bilaterally Cardiovascular Cardiovascular exam: Present regular rate; Absent tachycardia Neurological Exam Neurological exam: Present alert, oriented X3, CN II-XII intact and normal gait; Absent motor sensory deficit Medical Decision Making Ziggy Inquiry Pt receiving controlled substance: No Vital Signs: 09/25/23 09:19 09/25/23 09:35 09/25/23 10:00 Temperature 98.0 F Temperature Source Oral Pulse Rate 58 L 62 Pulse Rate [Left Radial] 62 Respiratory Rate 18 Blood Pressure 137/94 H 149/92 H Blood Pressure [Right Arm] 137/94 H Blood Pressure Mean [Right Arm] 108 02 Sat by Pulse Oximetry 96 97 97 Oxygen Deliver
[2023-09-25 10:00] VITALS: BP 149/92; PULSE 62; O2SAT 97
[2023-09-25 10:30] VITALS: BP 155/102; PULSE 59; O2SAT 98
[2023-09-25 11:02] VITALS: BP 155/102; PULSE 58; RESP 16; TEMP 36.7; O2SAT 97
== END 2023-09-25 11:02 | disposition home or self-care (01) ==
PROVIDERS: Emergency Provider Student in an Organized Health Care Education/Training Program; PCP Internal Medicine Adolescent Medicine
DX: R51.9 Headache, unspecified (principal)
CPT/HCPCS: 96361; 96374; 96375; 99284

== ENCOUNTER 2023-10-21 06:43 | Outpatient (CLI) | payer MEDICARE, SELFPAY ==
[2023-10-19 09:20] VITALS: BMI 30.5
[2023-10-21] MEDS: METOPROLOL TARTRATE 25MG TABLET *IVABRADINE+METOPROLOL REGIMINE 25 MG PO (07:25)
[2023-10-21 07:27] VITALS: BP 114/70; PULSE 62; RESP 18; O2SAT 96
[2023-10-21] MEDS: METOPROLOL TARTRATE 25MG TABLET 25 MG (07:27)
[2023-10-21 07:37] LABS: POC Glucose,Bedside 106 (70-110)
[2023-10-21 07:44] LABS: Anion Gap 11.1 mEq/L (5-15); Blood Urea Nitrogen 11 mg/dl (9-20); Calcium 9.4 mg/dl (8.4-10.2); Carbon Dioxide 30 mmol/L (22.0-30.0); Chloride 105 mmol/L (98-107); Creatinine Clearance Estimated 135 mL/min (50-200); Estimated Glomerular Filt Rate 102 ml/min (>60); GFR (African American) 123 ML/MIN (>60); Glucose 112 mg/dl (74-100); Potassium 4.1 mmoL/L (3.5-5.1); Sodium 142 mmol/L (136-145)
[2023-10-21 07:50] VITALS: BP 116/72; PULSE 60; RESP 18; O2SAT 97
[2023-10-21 08:07] VITALS: BP 125/88; PULSE 59; RESP 18; O2SAT 98
[2023-10-21] MEDS: NITROGLYCERIN 0.4MG SL TABLET 0.800000000000000044 MG SL (08:07)
[2023-10-21 08:10] VITALS: BP 107/41; PULSE 63; RESP 18; O2SAT 95
[2023-10-21 08:15] VITALS: BP 92/59; PULSE 60; RESP 18; O2SAT 97
[2023-10-21] MEDS: IOPAMIDOL-370 (76%);100ML BOTTLE 85 ML IV (08:21)
[2023-10-21] MEDS: SODIUM CHLORIDE 0.9% 10ML SYR (RAD ONLY) 10 ML IV (08:21)
[2023-10-21] MEDS: 0.9 % SODIUM CHLORIDE 50 ML VIAL IV (08:21)
== END 2023-10-21 23:59 | disposition home or self-care (01) ==
PROVIDERS: PCP Internal Medicine Adolescent Medicine; Visit Provider Internal Medicine Adolescent Medicine
DX: R07.9 Chest pain, unspecified (principal); R07.89 Other chest pain
CPT/HCPCS: 75571; 75574; 80048; 82962; Q9967

== ENCOUNTER 2023-11-10 09:00 | Outpatient (CLI) | payer MEDICARE, SELFPAY | END 2023-11-10 23:59 | LOC: RT 09:02 | PROVIDERS: PCP Internal Medicine Adolescent Medicine; Visit Provider Physician Assistant | DX: R00.2 Palpitations (principal); R55 Syncope and collapse; I10 Essential (primary) hypertension; I20.89 Other forms of angina pectoris; R93.1 Abnormal findings on diagnostic imaging of heart and coronary circulation | CPT/HCPCS: 93225; 93270 ==

== ENCOUNTER 2023-11-15 08:12 | Outpatient (CLI) | payer MEDICARE, SELFPAY | END 2023-11-15 23:59 | LOC: RT 08:13 | PROVIDERS: PCP Internal Medicine Adolescent Medicine; Visit Provider Physician Assistant | DX: E11.9 Type 2 diabetes mellitus without complications (principal); E78.5 Hyperlipidemia, unspecified; I10 Essential (primary) hypertension; I20.89 Other forms of angina pectoris; K74.60 Unspecified cirrhosis of liver; R00.2 Palpitations; R55 Syncope and collapse; R93.1 Abnormal findings on diagnostic imaging of heart and coronary circulation; Z79.84 Long term (current) use of oral hypoglycemic drugs | CPT/HCPCS: 93270 ==

== ENCOUNTER 2023-11-17 08:18 | Day surgery (SDC) | payer MEDICARE, SELFPAY ==
[2023-11-17] VITALS (12 sets, daily range): BP systolic 110–165; BP diastolic 71–94; PULSE 60–87; RESP 15–18; TEMP 36.3; O2SAT 93–98; BMI 31.3
--- NOTE | 2023-11-17 07:20 | IR_ITS ---
APPROVED REPORT Patient Location: Outpatient PROCEDURES Left heart catheterization Left ventriculogram Selective coronary angiogram INDICATION Abnormal CCTA, Atypical angina pectoris Informed consent was obtained prior to the procedure. COMPLICATIONS NONE Estimated Blood Loss: LESS THAN 10 ML TECHNIQUE One percent lidocaine used to anesthetize the right anterior aspect of the wrist. The right radial artery was accessed via the Seldinger technique. A 6 Spanish sheath was placed in the right radial artery. 2.5 mg of Verapamil, 800 mcg of nitroglycerin, 1mg Lidocaine and 5000 U Heparin were given through the arterial sheath. The papa catheter was also used to perform left heart catheterization, left ventriculogram and selective coronary angiogram. At the end of the procedure the sheath was removed good hemostasis was achieved using Traclet band, patient was transferred to the postop holding area in stable condition. ANGIOGRAPHIC RESULTS The left main artery Normal The left anterior descending artery Proximally normal with a mid vessel smooth 30% stenosis. The circumflex artery Codominant with mild 10% luminal irregularities The right coronary artery Codominant with mild diffuse 10% luminal irregularities The VALERO ventriculogram reveals Normal 65% The left ventricular end-diastolic pressure 10 mmHg IMPRESSION Mild coronary disease as described above Normal ejection fraction Normal left ventricular end-diastolic pressure PLAN 1. Aggressive medical management with risk factor modification Electronically signed by : Sabino Ramsay MD 11/17/2023 11:12:05
[2023-11-17 08:47] LABS: Basophils % 0.3 % (0.1-2.0); Eosinophils # 0.1 K/mm3 (0.0-0.4); Eosinophils % 1.5 % (0.1-12.0); Hematocrit 49.2 % (42.0-52.0); Hemoglobin 17.1 g/dL (14.1-18.0); Lymphocytes # 2.2 K/mm3 (0.7-4.5); Lymphocytes % 36.8 % (10-50); Mean Corpuscular HGB Conc 34.8 g/dL (31.8-35.4); Mean Corpuscular Hemoglobin 33.3 pg (27.0-31.2); Mean Corpuscular Volume 95.7 fl (80-94); Mean Platelet Volume 7.4 fl (7.4-10.4); Monocytes # 0.3 K/mm3 (0.1-1.0); Monocytes % 5.6 % (1.7-9.3); Neutrophils # 3.3 K/mm3 (1.8-7.8); Neutrophils % 55.9 % (37.0-80.0); Platelet Count 183 K/mm3 (142-424); Red Blood Count 5.14 M/mm3 (4.60-6.20)
[2023-11-17 08:54] LABS: Chloride 103 mmol/L (98-107); Sodium 137 mmol/L (136-145)
[2023-11-17 08:55] LABS: Potassium 3.9 mmoL/L (3.5-5.1)
[2023-11-17 08:57] LABS: Blood Urea Nitrogen 13 mg/dl (9-20); Creatinine Clearance Estimated 157 mL/min (50-200); Estimated Glomerular Filt Rate 118 ml/min (>60); GFR (African American) 143 ML/MIN (>60)
[2023-11-17 08:58] LABS: Anion Gap 4.9 mEq/L (5-15); Calcium 8.4 mg/dl (8.4-10.2); Carbon Dioxide 33 mmol/L (22.0-30.0); Glucose 103 mg/dl (74-100)
[2023-11-17] MEDS: IOPAMIDOL-370 (76%);100ML BOTTLE 130 ML IV (10:48)
[2023-11-17] MEDS: VERAPAMIL 2.5MG/ML 2ML VIAL 2.5 MG IV (10:56)
[2023-11-17] MEDS: NITROGLYCERIN 800MCG/8ML SYR (CATH LAB) 800 MCG IA (10:56)
[2023-11-17] MEDS: diphenhydrAMINE 50MG/ML VIAL 50 MG IV (10:56)
[2023-11-17] MEDS: HEPARIN 1,000 UNITS/ML 10ML VIAL (CATH LAB) 10000 UNIT IV (10:57)
[2023-11-17] MEDS: HEPARIN 1,000 UNITS/500ML NS (CATH LAB) 3000 UNIT IV (10:57)
[2023-11-17] MEDS: 0.9 % SODIUM CHLORIDE 500 ML 25 ML IV (10:57)
[2023-11-17] MEDS: LIDOCAINE 1% 10ML MDV 20 ML IJ (10:57)
[2023-11-17] MEDS: MIDAZOLAM HCL 1MG/1ML 5ML VIAL 1 MG IV (11:06)
[2023-11-17] MEDS: FENTANYL 100MCG/2ML VIAL 50 MCG IV (11:06)
[2023-11-17] MEDS: IOPAMIDOL-370 (76%);100ML BOTTLE 70 ML IV (12:48)
== END 2023-11-17 14:01 | disposition home or self-care (01) ==
PROVIDERS: PCP Internal Medicine Adolescent Medicine; Visit Provider Internal Medicine
DX: E11.59 Type 2 diabetes mellitus with other circulatory complications (principal); E78.5 Hyperlipidemia, unspecified; I10 Essential (primary) hypertension; I25.118 Atherosclerotic heart disease of native coronary artery with other forms of angina pectoris; K74.60 Unspecified cirrhosis of liver; R00.2 Palpitations; R55 Syncope and collapse; R93.1 Abnormal findings on diagnostic imaging of heart and coronary circulation; Z79.899 Other long term (current) drug therapy; Z79.84 Long term (current) use of oral hypoglycemic drugs; F10.91 Alcohol use, unspecified, in remission
CPT/HCPCS: 80048; 85025; 93458; 99152; C1725; C1769; J1644; Q9967

== ENCOUNTER 2023-11-23 09:47 | Outpatient (CLI) | payer MEDICARE, SELFPAY ==
--- NOTE | 2023-11-23 09:47 | CA_ITS ---
APPROVED REPORT EXAM: Comprehensive 2D, Doppler, and color-flow Echocardiogram Medical Clerical Assistant: Pauly Dunham CRT Ht: 5 ft 7 in Wt: 200lbs BSA: 2.02 BP: 126/81 mmHg Indications: Chest Pain, Diabetes, Syncope, Palpitations, Fatigue, Hyperlipidemia, Hypertension/HDD 2D Dimensions Left Atrium 3.93 cm LA Volume 50.70 mL LVOT 1.95 cm (M/F) 1.5-2.5 LA Volume Index 25.10 mL/m2 (M/F) 16-34 EF AP2 49.7 % GL Strain -16.9 % M-Mode Dimensions RVDd 2.54 cm (0.9-2.6) LVDd 4.33 cm (3.5-5.7) Ao Diam 4.04 cm (2.0-3.7) LVDs 2.01 cm (3.5-5.7) IVSd 1.47 cm (0.6-1.1) PWd 0.97 cm (0.6-1.1) EF (Teich) 84.70% FS 53.60% EDV (Teich) 84.40 mL TAPSE 2.11 (<1.7) ESV (Teich) 12.90 mL LV Diastology E Decel Time 200 (160-240 msec) E/A Ratio 1.22 MED E' 7.6 (>= 7 cm/sec) MED A' 12.10 cm/s E'/MED E' Ratio 13.39 (<= 14) LAT E' 8.5 (>= 10 cm/sec) LAT A' 12.60 cm/s E/LAT E' Ratio 11.98 (<= 14) Aortic Valve AoV Peak Mihn. 170.0 (50-130 cm/s) AO Peak GR. 11.60 mmHg Mitral Valve MV E Max Minh. 102.0 (40-130 cm/s) MV A Velocity 83.0 (40-130 cm/s) E/A Ratio 1.22 MV Decel. Time 200 (160-240 ms) Pulmonary Valve TX End VMAX 87.0 cm/s Tricuspid Valve TR P. Velocity 249.00 cm/s RAP Estimate 10.00 mmHg RVSP 34.80 mmHg Left Ventricle The left ventricle is normal size. The left ventricular systolic function is normal. The left ventricular ejection fraction is within the normal range. There is increased LV wall thickness. There is normal LV segmental wall motion. The left ventricular diastolic function is normal. LVEF is 55%. Right Ventricle The right ventricle is mildly dilated. The right ventricular systolic function is normal. Atria The left atrium size is normal. The right atrium size is normal. There is no Doppler evidence of interatrial shunt. Aortic Valve The aortic valve opens well. There is no aortic valvular stenosis. Trace aortic regurgitation. Mitral Valve The mitral valve is normal in structure. Trace mitral regurgitation. Tricuspid Valve The tricuspid valve leaflets are thin and pliable. Trace tricuspid regurgitation. There is insufficient TR jet to estimate RVSP. Pulmonic Valve The pulmonary valve is normal in structure. Trace pulmonic regurgitation. Great Vessels The aortic root is normal in size. The ascending aorta is normal in size. IVC is normal in size and collapses >50% with inspiration. Pericardium Trivial pericardial effusion is present. Other Information Study Quality: Fair Conclusion Normal biventricular systolic function. Mild RV dilation. No significant valvular stenosis or regurgitation. Electronically signed by : Selam Leary MD 11/25/2023 19:34:15
== END 2023-11-23 23:59 ==
LOC: RT 09:47
PROVIDERS: PCP Internal Medicine Adolescent Medicine; Visit Provider Physician Assistant
DX: E11.9 Type 2 diabetes mellitus without complications (principal); E78.5 Hyperlipidemia, unspecified; I10 Essential (primary) hypertension; I20.89 Other forms of angina pectoris; K74.60 Unspecified cirrhosis of liver; R00.2 Palpitations; R55 Syncope and collapse; R93.1 Abnormal findings on diagnostic imaging of heart and coronary circulation; Z79.84 Long term (current) use of oral hypoglycemic drugs; Z79.899 Other long term (current) drug therapy; Z12.5 Encounter for screening for malignant neoplasm of prostate
CPT/HCPCS: 93306

== ENCOUNTER 2024-07-16 08:22 | Day surgery (SDC) | payer MEDICARE, SELFPAY ==
[2024-07-10 17:15] VITALS: BMI 33.6
[2024-07-16 08:47] VITALS: BP 129/71; PULSE 86; RESP 18; TEMP 36.7; O2SAT 96
--- NOTE | 2024-07-16 08:50 | P.PNANES_ITS ---
[facility] Disclaimer: The information contained in this section may have been updated after the patient was seen, as this information can be updated by other users. Medical History Abnormal findings on diagnostic imaging of heart and coronary circulation Atypical angina Cirrhosis Palpitations Kidney stone History of COVID-19 History of back pain Diverticulitis Diabetes mellitus, type 2 History of chest pain Hyperlipidemia Hypertension Surgical History (Updated 07/10/24 @ 17:12 by Samantha Duval, GEOFFREY) H/O colonoscopy with polypectomy H/O cardiac catheterization H/O left knee surgery Family History Other Family history of cancer Family history of diabetes mellitus type II Family history of stroke Social History (Updated 07/10/24 @ 17:15 by Samantha Duval, RN) Smoking Status: Never smoker alcohol intake: current alcohol intake frequency: a few times a month substance use type: denies use current occupational status: unemployed and disabled Travel in the last 8 weeks: None housing: house current occupational exposures/hazards: No caffeine: Yes [facility] Anesthesia Checklist Patient Identification Patient Identification: Arm Band and Verbal (Name & ) Structural Data Admitted From: Home Planned Operative Procedure/s: Colonoscopy Consent for Planned Operative Procedure(s) Verified: Yes Verified Documents: Surgical Consent and History and Physical NPO Status Verified Time NPO: 06:00 Chart Verification Results Verified: CBC, BMP, ECG and Chest Xray Additional verifications Fingerstick Blood Glucose: 113 Patient : No Anesthesia Reactions: No Hx Blood Transfusions: No Blood Transfusion Reaction: No Cardiovascular Assessment Heart Sounds: S1 & S2 Pulse Rhythm: Irregular Peripheral Edema: No Airway Assessment Mallampati Score:: Class II C-Spine Mobility Assessed: Yes (FROM) TMJ Mobility Assessed: Yes Dentition: Good Dentition (Nothing loose per pt.) Neurological Assessment Level of Consciousness: Awake, Alert, Appropriate and Follows Commands Hx Seizures: No Numbness or tingling in extremities: No Anesthesia Plan Anesthesia Risk discussed: Yes Anesthesia Plan: Verified ASA Class: III Anesthesia Type: MAC
[2024-07-16 08:52] LABS: POC Glucose,Bedside 113 (70-110)
[2024-07-16] MEDS: LACTATED RINGERS 1000ML 1,000 ML 25 ML IV (08:59)
--- NOTE | 2024-07-16 09:04 | P.HP_ITS ---
History of Present Illness *Admission Date: 07/16/24 *Reason for visit:: Screening/surveillance *History of present illness: Mr. Mckeon is a 53-year-old gentleman who is here for follow-up surveillance colonoscopy secondary to a personal history of colon polyps. The examination is deemed medically necessary for colonoscopy. The patient has been seen, interviewed and examined prior to the procedure by both myself and the anesthesia provider. [facility] Disclaimer: The information contained in this section may have been updated after the patient was seen, as this information can be updated by other users. Medical History (Updated 07/16/24 @ 09:06 by Waylon Brantley II, MD) Abnormal findings on diagnostic imaging of heart and coronary circulation Atypical angina Cirrhosis Palpitations Kidney stone History of COVID-19 History of back pain Diverticulitis Diabetes mellitus, type 2 History of chest pain Hyperlipidemia Hypertension Surgical History (Updated 07/10/24 @ 17:12 by Samantha Duval RN) H/O colonoscopy with polypectomy H/O cardiac catheterization H/O left knee surgery Family History Other Family history of cancer Family history of diabetes mellitus type II Family history of stroke Social History Smoking Status: Never smoker alcohol intake: current alcohol intake frequency: a few times a month substance use type: denies use current occupational status: unemployed and disabled Travel in the last 8 weeks: None housing: house current occupational exposures/hazards: No caffeine: Yes Other Medical History Have you received the Flu Vaccine for this season: No Have you received the Pneumonia Vaccine: No Review of Systems Review of Systems Review of systems (narrative): Negative *Cardiovascular Comments: Negative *Gastrointestinal Comments: Negative *Genitourinary Comments: Negative *Musculoskeletal Comments: Negative *Neurologic Comments: Negative Meds Home Medications and Allergies Home Medications ?Medication ?Instructions ?Recorded ?Confirmed ?Type cyclobenzaprine 10 mg tablet 10 mg PO HS Pain 05/26/21 07/16/24 History lisinopril 10 1 each PO DAILY High blood pressure 05/26/21 07/16/24 History mg-hydrochlorothiazide 12.5 mg tablet metformin 1,000 mg tablet 1,000 mg PO BID Diabetes 05/26/21 07/16/24 History canagliflozin 300 mg tablet 300 mg PO DAILY 11/10/23 07/16/24 History (Invokana) aspirin 81 mg tablet,delayed 81 mg PO DAILY 11/24/23 07/16/24 History release (Adult Low Dose Aspirin) gabapentin 800 mg tablet 800 mg PO TID 11/24/23 07/16/24 History rosuvastatin 20 mg tablet 20 mg PO DAILY #90 tabs 12/27/23 07/16/24 Rx propranolol 60 mg capsule,24 60 mg PO DAILY #30 caps 12/28/23 07/16/24 Rx hr,extended release New Prescriptions to Start Prescriptions: Allergies Allergy/AdvReac Type Severity Reaction Status Date / Time No Known Allergies Allergy Verified 07/16/24 08:56 Exam Data for Last 24 hours Vital signs and Labs for Last 24 Hours: Temp Pulse Resp BP Pulse Ox O2 Del Method 98.0 F 86 18 129/71 96 Room Air 07/16/24 08:47 07/16/24 08:47 07/16/24 08:47 07/16/24 08:47 07/16/24 08:47 07/16/24 08:47 Laboratory Results - last 24 hr 07/16/24 08:43: POC Glucose 113 H *Routine HEENT Exam Head: Present normocephalic Eye: Present EOMI and PERRL ENT: Present mucous membranes moist *Routine Neck Exam Neck: Present supple *Routine Respiratory Exam Respiratory: Present CTA bilaterally *Routine Cardiovascular Exam Cardiovascular: Present RRR *Routine Abdominal Exam Abdominal: Present soft and normoactive bowel sounds; Absent tenderness *Routine Rectal Exam Rectal:: deferred *Routine Genitalia Exam Genitalia:: deferred *Routine Extremities Exam Extremities: Absent cyanosis, clubbing or edema *Routine Skin Exam Skin: Present warm; Absent rash *Routine Neurological Exam Neurological: Present alert and oriented X3 Assessment and Plan *Assessment and plan (1) Personal history of colon polyps, unspecified: Status: Acute Category: Medical Code(s): Z86.0100 - Personal history of colon polyps, unspecified Plan A/P: 1. Screening/surveillance secondary to a personal history of colon polyps is the preprocedural diagnosis. The patient will be anesthetized/sedated using MAC sedation. The patient has been seen and examined. Cardiac and lung assessment prior to the examination is stable. Proceed with planned colonoscopy
[2024-07-16 09:09] VITALS: O2SAT 99
--- NOTE | 2024-07-16 09:12 | HMH.PROCNOTE ---
[facility] Procedure Note Date: 07/16/24 Time: 09:33 Procedure Note:: Colonoscopy Procedure Report: Colonoscopy with cold snare polypectomy Endoscopist: Waylon Brantley II, MD Referring physician: Finn Ford M.D. Date of Procedure: July 16, 2024 Equipment: Olympus 190 variable stiffness pediatric colonoscope Sedation: MAC sedation Indication: Mr. Mckeon is a 53-year-old gentleman who is here for follow-up surveillance colonoscopy secondary to a personal history of adenomatous polyps. He did have a colonoscopy in May 2021 and had 1 larger 14 mm sigmoid polyp (14 mm tubular adenoma) and 4 smaller polyps (tubular adenomas x 4) which were removed. He reports no abdominal pain, weight loss, change in his bowel habits or rectal bleeding. He reports no family history of colon cancer. His father had colon polyps. The patient has been using psyllium/Konsyl routinely and this helps bowel function. Procedure: Prior to the procedure, a history and physical exam was performed, and patient's medications and allergies were reviewed. The risks, benefits and alternatives of the sedation and procedure were discussed with the patient. All questions were answered and informed consent was obtained. The patient was brought to the procedure room. Patient identification and proposed procedure were verified by the physician and the nurse. The patient was placed in a left lateral decubitus position and the scope was passed under direct vision. Throughout the procedure, the patient's blood pressure, pulse, and oxygen saturations were monitored continuously. The colonoscopy was accomplished without difficulty. The patient tolerated the procedure well. Findings: On digital rectal examination there was normal rectal tone. There were no external hemorrhoids. The prostate was 2+ with some mild firmness along the right lower prostate margin. The colonoscope was introduced through the anal canal to the rectum and advanced to the cecum. The ileocecal valve and appendiceal orifice were identified. The scope was advanced a short distance into the ileum which appeared grossly normal. The scope was then withdrawn into the colon. There were 3 polyps (ascending x 1 (4 mm), sigmoid x 1 (4 mm) and rectum x 1 (5 mm)). These were removed via cold snare polypectomy. The remaining cecum, ascending and transverse colon and mucosa were grossly normal. There were scattered diverticuli throughout the descending and sigmoid colon (LEFT colon). The rectum itself was normal. Upon retroflexion within the rectum there were grade 1-2 internal hemorrhoids. The preparation was excellent throughout with [place] Preparation Score of 9. The cecal time was 13 minutes. Impression: 1. Diminutive colonic polyps x 3 2. Left-sided diverticulosis 3. Grade 1-2 internal hemorrhoids Plan: I will follow-up the polyp histology and recommend repeat surveillance colonoscopy again in 5 years. I will recommend PSA testing.
[2024-07-16 09:36] VITALS: BP 122/80; PULSE 80; RESP 18; TEMP 37.1; O2SAT 95
[2024-07-16 09:46] VITALS: BP 112/72; PULSE 79; RESP 18; O2SAT 95
[2024-07-16 09:56] VITALS: BP 126/73; PULSE 72; RESP 18; O2SAT 94
[2024-07-16 10:06] VITALS: BP 119/72; PULSE 75; RESP 16; O2SAT 95
[2024-07-16 11:22] LABS: Prostate Specific Ag Screen 1.8 ng/ml (0.0-4.0)
== END 2024-07-16 10:20 | disposition home or self-care (01) ==
PROVIDERS: PCP Internal Medicine Adolescent Medicine; Visit Provider Internal Medicine Gastroenterology
PROC: 0DJD8ZZ Inspection of Lower Intestinal Tract, Via Natural or Artificial Opening Endoscopic (ICD-10-PCS; CPT 45378; principal; 2024-07-16 10:00)
DX: Z12.11 Encounter for screening for malignant neoplasm of colon (principal); Z86.0100 Personal history of colon polyps, unspecified; N40.2 Nodular prostate without lower urinary tract symptoms; K63.5 Polyp of colon; K57.30 Diverticulosis of large intestine without perforation or abscess without bleeding; K64.8 Other hemorrhoids; E11.9 Type 2 diabetes mellitus without complications; Z79.84 Long term (current) use of oral hypoglycemic drugs
CPT/HCPCS: 45385; 82962; 88305; G0103; J7120